=== PATIENT | male | born 1960 | race Caucasian/White ===

== ENCOUNTER 2017-12-05 14:47 | Inpatient (IN) | payer OTHER ==
[~2017-12-05] VITALS: Ht 172.7 cm; Wt 72.6 kg
[~2017-12-05 14:47] MED LIST: ACET-9536 PO; ALBU0.0912 IH; ATRMDI IH; BACL20TA4 PO; FURO-572 PO; LORA10TA19 PO; RANI-287 PO; SIMV20TA1 PO; SODI45SP3 NS
[2017-12-05 14:52] VITALS: BP 142/79
[2017-12-05] MEDS ORDERED: ACETAMINOPHEN EXTRA STRENGTH 500 MG TAB ONE ×2 (15:14→20:37)
[2017-12-05] MEDS ORDERED: NACL 0.9% 2,500 ML IV ONE (17:05)
[2017-12-05] MEDS ORDERED: ALBUTEROL SULFATE/IPRATROPIU 3 ML SOL IH ONE (17:40)
--- NOTE | 2017-12-05 17:51 | NUR ---
PATIENT IS A 57 YO MALE BIB EMS FROM [facility] FOR SHORTNESS OF BREATH, ON ARRIVAL HE IS AWAKE AND ALERT,ABLE TOTALKE HAS VERY LOUD PRODUCTIVE COUGH, GIVEN TYLENOL PO GIVEN ON ARRIVAL FOR FEVER, TO LOBBY FOR BED AVAILABILITY.
--- NOTE | 2017-12-05 17:53 | NUR ---
PATIENT BRFOUGHT TO [facility] FOR TESTING, LABS DRAWN IV ESTABLISHED AND IV FLUID STARTED. DR HOOKER EVALUATED PATIENTG. FLUID RUNNING RT AT CHAIRSIDE AND HHN STARTED.
[2017-12-05 18:10] LABS: HEMATOCRIT 42.9 % (36-52); HEMOGLOBIN 14.3 g/dL (12.0-18.0); MEAN CORPUSCULAR HEMOGLOBIN 31 pg (27-31); MEAN CORPUSCULAR HGB CONC 33 g/dL (33-37); MEAN CORPUSCULAR VOLUME 93 fL (80-94); PLATELET COUNT (AUTO) 269 K/uL (140-450); RED BLOOD CELL COUNT(AUTO) 4.62 MIL/uL (4.20-6.10)
--- NOTE | 2017-12-05 18:30 | NUR ---
57M biba with c/o productive cough and congestion with sob x 1 wk, progressively getting worse. Pt also reports fatigue and weakness. Pt denies any cp, sob, or n/v/d. Pt has hx of pna. Pt is aox4. RR are even, tachynpeic, and labored. pulse ox=97% on RA. Pt positioned to comfort, bed down. NAD at this time. Er md aware of pt status. Will continue to monitor.
--- NOTE | 2017-12-05 19:27 | NUR ---
Pt report given to Elizabeth CARDOSO. Transfer of care at this time.
--- NOTE | 2017-12-05 20:25 | NUR ---
100.8 TEMP, MEDICATION PROTOCOL INITIATED
--- NOTE | 2017-12-05 21:30 | NUR ---
PT AFEBRILE. Patient appears to be resting comfortably in bed. Vital Signs within normal limits. Respirations even and unlabored. AWAITING FOR LABS
[2017-12-05 21:58] LABS: EOSINOPHILS % (MANUAL) 2 % (0-4); LYMPHOCYTES % (MANUAL) 8 % (20-46); MONOCYTES % (MANUAL) 10 % (5-12)
[2017-12-05 22:17] LABS: ALBUMIN 3.1 g/dL (3.4-5.0); ANION GAP 15.8 (8-16); CARBON DIOXIDE 21.9 mmol/L (21-32); POTASSIUM 3.7 mmol/L (3.5-5.1); TOTAL BILIRUBIN 1.1 mg/dL (0.0-1.0)
--- NOTE | 2017-12-05 22:30 | NUR ---
PT AFEBRILE. Patient appears to be resting comfortably in bed. Vital Signs within normal limits. Respirations even and unlabored.
[2017-12-05] MEDS ORDERED: LEVOFLOXACIN 750 MG/D5W PREMIX 150 ML IV SCH ×2 (22:40→22:50)
[2017-12-05] MEDS ORDERED: NACL 0.9% 1,000 ML IV SCH (22:50)
[2017-12-05] MEDS ORDERED: ACETAMINOPHEN 325 MG TAB PO PRN (22:50)
[2017-12-05] MEDS ORDERED: ONDANSETRON 4 MG/2 ML VIAL IVP PRN (22:50)
[2017-12-05] MEDS ORDERED: ALBUTEROL 0.083% 2.5 MG/3 ML NEBU IH PRN (22:50)
[2017-12-06] VITALS: BP 124/64
--- NOTE | 2017-12-06 | NUR ---
Admitted from ER TO MED SURGICAL UNIT, with chief complaint of SHORTNESS OF BREATH, COUGHING FOR 3 DAYS 57 y/o ,Male, Cooperative, AWAKE, A/OX4, RESPIRATION EVEN AND UNLABORED, ON 02 AT 2 LITERS VIA N/C, 02 SAT -92%. WITH PERSISTENT UNPRODUCTIVE COUGHING NOTED. HEAD OF BED ELEVATED 45 DEGREES BUT PREFERS HEAD OF BED IN LOWER POSITION. HEAD TO TOE ASSESSMENT DONE WITH CHARGE NURSE MARTINA, SKIN INTACT. NOTED VERY DRY SKIN AT THE PLANTAR AREA OF BOTH FEET. DENIES PAIN 0/10. oriented to call light, bed, phone,television, bathroom, smoking policy, visiting hours, procedures, ID bracelet on. Belongings list checked.
--- NOTE | 2017-12-06 | NUR ---
Patient will be admitted to [facility]. Admited to MS. Will go to room 106B. Belongings list completed. BEDSIDE Report to TEDDY LYLE. IV INFUSING, TEDDY INFORMED TO FINISH BAG
--- NOTE | 2017-12-06 00:05 | NUR ---
Patient's Plan of Care was discussed and reviewed with MERCHANDISE ADJUSTMENT CLERK: TEDDY GONCALVES
[2017-12-06] MEDS: ALBUTEROL 0.083% 2.5 MG/3 ML NEBU IH SCH ×3 (00:20→20:14)
[2017-12-06] MEDS: guaiFENesin DM 200/20 MG-10 ML 10 ML UDC PO PRN ×4 (01:45→22:04)
--- NOTE | 2017-12-06 01:45 | NUR ---
STILL WITH PERSISTENT UNPRODUCTIVE COUGHING, MEDICATED WITH ROBITUSSIN ORDERED.
--- NOTE | 2017-12-06 02:45 | NUR ---
NO COUGHING NOTED, SLEEPING COMFORTABLY IN BED.
[2017-12-06 04:00] VITALS: BP 123/70
--- NOTE | 2017-12-06 05:21 | NUR ---
AWAKE IN BED, WITH COUGHING, MEDICATED WITH ROBITUSSIN ORDERED.
--- NOTE | 2017-12-06 06:21 | NUR ---
RESTING COMFORTABLY SLEEPING IN BED, DECREASED COUGHING NOTED.
--- NOTE | 2017-12-06 07:25 | NUR ---
ENDORSED TO JANAE ARROYO FOR CONTINUITY OF CARE.
--- NOTE | 2017-12-06 07:30 | NUR ---
RECEIVED ON BED AAOX4. NO SOB NOTED. NO C/O PAIN AT THIS TIME. IV TO RT AC PATENT AND INTACT. CHEST DIMINISHED AIR ENTRY TO THE BASES, SLIGHT WHEEZING NOTED ON UPPER LOBES. PT ON OXYGEN AT 2LPM VIA NASAL CANNULA WITH 95% O2 SATS. ABDOMEN SOFT, BOWEL SOUNDS PRESENT. INSTRUCTED PT TO CALL FOR ASSISTANCE, CALL LIGHT WITHIN REACH. PT VERBALIZED UNDERSTANDING.
[2017-12-06 08:00] VITALS: BP 118/64
--- NOTE | 2017-12-06 08:57 | NUR ---
PATIENT HAS BEEN SCREENED AND CATEGORIZED LOW NUTRITION RISK. PT WILL BE SEEN WITHIN 7 DAYS OF ADMISSION. 12/11/[address]
[2017-12-06] MEDS ORDERED: OSELTAMIVIR PHOSPHATE 75 MG CAP PO SCH (09:00)
[2017-12-06] MEDS: ENOXAPARIN 40 MG/0.4 ML SYR SUBQ SCH (09:28)
[2017-12-06 10:41] LABS: BASOPHILS # (AUTO) 0.1 K/uL (0.00-0.22); EOSINOPHILS # (AUTO) 0.1 K/uL (0-0.4); EOSINOPHILS % (AUTO) 1.1 % (0.0-4.0); HEMATOCRIT 36.6 % (36-52); HEMOGLOBIN 12.4 g/dL (12.0-18.0); LYMPHOCYTES # (AUTO) 0.8 K/uL (2.0-11.5); LYMPHOCYTES % (AUTO) 6.4 % (20.5-51.1); MEAN CORPUSCULAR HEMOGLOBIN 32 pg (27-31); MEAN CORPUSCULAR HGB CONC 34 g/dL (33-37); MEAN CORPUSCULAR VOLUME 93 fL (80-94); MONOCYTES # (AUTO) 1.8 K/uL (0.8-1.0); NEUTROPHILS # (AUTO) 9.3 K/uL (1.8-7.7); NEUTROPHILS % (AUTO) 76.5 % (42.2-75.2); PLATELET COUNT (AUTO) 222 K/uL (140-450); RED BLOOD CELL COUNT(AUTO) 3.92 MIL/uL (4.20-6.10); RED CELL DISTRIBUTION WIDTH 12.9 % (11.6-13.7)
[2017-12-06 12:09] LABS: WHITE BLOOD COUNT (AUTO) 12.1 K/uL (4.8-10.8)
[2017-12-06] MEDS ORDERED: NON-FORMULARY ITEM (Ranitidine Hcl* (Zantac*) 150 MG) PO PRN (12:35)
--- NOTE | 2017-12-06 13:00 | NUR ---
PT SEEN BY DR. HERNANDEZ WITH NEW ORDERS.
--- NOTE | 2017-12-06 13:09 | NUR ---
CM NOTE INITIAL REVIEW FAXED TO [facility] [phone] T[place]LOR # [phone]
[2017-12-06] MEDS ORDERED: LEVOFLOXACIN 750 MG/D5W PREMIX 150 ML IV SCH (13:35)
[2017-12-06] MEDS: FAMOTIDINE 20 MG/2 ML VIAL IV SCH (13:40)
[2017-12-06 14:02] LABS: ANION GAP 16.5 (8-16); CARBON DIOXIDE 19.3 mmol/L (21-32); CREATININE 0.9 mg/dL (0.7-1.3); POTASSIUM 3.8 mmol/L (3.5-5.1)
[2017-12-06 14:08] LABS: ALBUMIN 2.4 g/dL (3.4-5.0); TOTAL BILIRUBIN 0.9 mg/dL (0.0-1.0)
--- NOTE | 2017-12-06 15:30 | NUR ---
URINE SPECIMEN COLLECTED AND SENT TO LAB.
[2017-12-06 15:57] VITALS: BP 115/60
[2017-12-06 16:52] LABS: APPEARANCE,URINE CLEAR (CLEAR); BILIRUBIN,URINE 1+ (NEGATIVE); BLOOD, URINE NEGATIVE (NEGATIVE); COLOR,URINE ORANGE (YELLOW); LEUKOCYTE ESTERASE ,URINE NEGATIVE (NEGATIVE); NITRITE, URINE NEGATIVE (NEGATIVE); UGLUCOSE NEGATIVE (NEGATIVE)
--- NOTE | 2017-12-06 18:00 | NUR ---
PT EATING DINNER. NO SOB NOTED. NO C/O PAIN.
--- NOTE | 2017-12-06 19:15 | NUR ---
PT AWAKE, NO COMPLAINTS MADE, NO SOB NOTED. WILL ENDORSE TO NEXT SHIFT NURSE FOR CONTINUITY OF CARE.
--- NOTE | 2017-12-06 19:17 | NUR ---
RECEIVED REPORT FROM DAY RN. PT RESTING IN BED. AAOX4. NO S/S OF ACUTE DISTRESS. PT DENIES PAIN. ON O2 2L NC. IV SITE PATENT AND INTACT. CALL LIGHT WITHIN REACH. SAFETY MEASURES ENSURED. WILL CONTINUE TO MONITOR.
[2017-12-06] MEDS: IPRATROPIUM 0.02% 0.5 MG/2.5 ML NEBU IH SCH (20:14)
[2017-12-06] MEDS: LEVOFLOXACIN 750 MG/D5W PREMIX 150 ML IV SCH (20:30)
[2017-12-06] MEDS: methylPREDNISolone SS 40 MG/ML VIAL IVP SCH (20:31)
--- NOTE | 2017-12-06 20:37 | NUR ---
AM MEDS GIVEN WITH EDUCATION. PT TOLERATED WELL. WILL CONTINUE TO MONITOR.
--- NOTE | 2017-12-06 22:24 | NUR ---
PT COUGHING PERSISTENTLY. COUGH MEDICINE GIVEN ORDERED. OLD IV SITE RED. IV DISCONTINUED. NEW IV STARTED. WILL CONTINUE TO MONITOR.
[2017-12-06 23:55] VITALS: BP 123/73
--- NOTE | 2017-12-07 00:02 | NUR ---
PT SLEEPING IN BED. NO S/S OF ACUTE DISTRESS. CALL LIGHT WITHIN REACH. WILL CONTINUE TO MONITOR.
[2017-12-07] MEDS: IPRATROPIUM 0.02% 0.5 MG/2.5 ML NEBU IH SCH ×4 (01:25→19:25)
[2017-12-07] MEDS: ALBUTEROL 0.083% 2.5 MG/3 ML NEBU IH SCH ×4 (01:25→19:25)
--- NOTE | 2017-12-07 01:44 | NUR ---
PT SLEEPING IN BED. NO S/S OF ACUTE DISTRESS. CALL LIGHT WITHIN REACH. WILL CONTINUE TO MONITOR.
--- NOTE | 2017-12-07 05:02 | NUR ---
PT SLEEPING IN BED. NO S/S OF ACUTE DISTRESS. CALL LIGHT WITHIN REACH. WILL CONTINUE TO MONITOR.
--- NOTE | 2017-12-07 07:34 | NUR ---
ENDORSED PLAN OF CARE TO NIGHT RN. PT REMAINS STABLE.
--- NOTE | 2017-12-07 07:35 | NUR ---
RECEIVED REPORT FROM EMD TEACHER NURSE. PATIENT LYING IN BED SLEEPING, NO DISTRESS NOTED. DENIES ANY PAIN AT THIS TIME. RESPIRATIONS EVEN, UNLABORED, ON O2 2L/MIN VIA NC. AAOX4, CALM, COOPERATIVE, SKIN COLOR APPROPRIATE TO ETHNICITY, WARM TO TOUCH. SKIN IS INTACT. LUNGS CTA ON ALL LOBES. ABDOMEN SOFT, NON-DISTENDED. IV SITE IS INTACT, PATENT, ON SALINE LOCK. REVIEWED PLAN OF CARE WITH PATIENT. PATIENT VERBALIZED UNDERSTANDING. SAFETY MEASURES IN PLACE, CALL LIGHT WITHIN REACH. WILL CONTINUE TO MONITOR.
[2017-12-07 07:46] LABS: BASOPHILS # (AUTO) 0.1 K/uL (0.00-0.22); BASOPHILS % (AUTO) 0.9 % (0.0-2.0); EOSINOPHILS # (AUTO) 0.1 K/uL (0-0.4); EOSINOPHILS % (AUTO) 0.7 % (0.0-4.0); HEMATOCRIT 37.7 % (36-52); HEMOGLOBIN 12.7 g/dL (12.0-18.0); LYMPHOCYTES # (AUTO) 0.5 K/uL (2.0-11.5); LYMPHOCYTES % (AUTO) 5.3 % (20.5-51.1); MEAN CORPUSCULAR HEMOGLOBIN 31 pg (27-31); MEAN CORPUSCULAR HGB CONC 34 g/dL (33-37); MEAN CORPUSCULAR VOLUME 93 fL (80-94); MONOCYTES # (AUTO) 0.6 K/uL (0.8-1.0); MONOCYTES % (AUTO) 6.8 % (1.7-9.3); NEUTROPHILS # (AUTO) 7.3 K/uL (1.8-7.7); NEUTROPHILS % (AUTO) 86.3 % (42.2-75.2); PLATELET COUNT (AUTO) 251 K/uL (140-450); RED BLOOD CELL COUNT(AUTO) 4.05 MIL/uL (4.20-6.10); WHITE BLOOD COUNT (AUTO) 8.6 K/uL (4.8-10.8)
[2017-12-07 08:00] VITALS: BP 102/59
[2017-12-07 08:08] LABS: ALBUMIN 2.3 g/dL (3.4-5.0); ANION GAP 14.4 (8-16); CARBON DIOXIDE 22.3 mmol/L (21-32); CREATININE 0.9 mg/dL (0.7-1.3); POTASSIUM 3.7 mmol/L (3.5-5.1); TOTAL BILIRUBIN 0.5 mg/dL (0.0-1.0)
[2017-12-07] MEDS: SIMVASTATIN 20 MG TAB PO SCH (09:33)
[2017-12-07] MEDS: LORATADINE 10 MG TAB PO SCH (09:34)
[2017-12-07] MEDS: FUROSEMIDE 40 MG/4 ML VIAL IVP SCH (09:34)
[2017-12-07] MEDS: methylPREDNISolone SS 40 MG/ML VIAL IVP SCH ×2 (09:35→20:51)
[2017-12-07] MEDS: ENOXAPARIN 40 MG/0.4 ML SYR SUBQ SCH (09:37)
--- NOTE | 2017-12-07 09:38 | NUR ---
PATIENT SITTING IN BED COMFORTABLY. NO DISTRESS NOTED. DENIES ANY PAIN. SCHEDULED MEDICATIONS DUE GIVEN. SAFETY MEASURES IN PLACE, CALL LIGHT WITHIN REACH. WILL CONTINUE TO MONITOR.
--- NOTE | 2017-12-07 11:28 | NUR ---
PATIENT SITTING IN BED WATCHING TV. NO DISTRESS NOTED. CONDITION UNCHANGED. WILL CONTINUE TO MONITOR.
[2017-12-07] MEDS: FAMOTIDINE 20 MG/2 ML VIAL IV SCH (13:14)
--- NOTE | 2017-12-07 13:30 | NUR ---
PATIENT SITTING IN BED WATCHING TV. NO DISTRESS NOTED. DENIES ANY PAIN. RECEIVED BREATHING TX 15 MINUTES AGO. SCHEDULED MEDICATIONS DUE GIVEN. SAFETY MEASURES IN PLACE, CALL LIGHT WITHIN REACH. WILL CONTINUE TO MONITOR.
[2017-12-07 16:00] VITALS: BP 107/70
--- NOTE | 2017-12-07 16:27 | NUR ---
PATIENT SITTING IN BED WATCHING TV. DR. HERNANDEZ AT BEDSIDE REVIEWING PLAN OF CARE WITH PATIENT. DISCHARGE PATIENT IF O2 SAT >90% ON ROOM AIR. WILL WEAN PATIENT OFF O2 AND MONITOR PATIENTS STATUS. SAFETY MEASURES IN PLACE, CALL LIGHT WITHIN REACH. WILL CONTINUE TO MONITOR.
--- NOTE | 2017-12-07 17:30 | NUR ---
PATIENT SITTING IN BED ON ROOM AIR WITH O2 SAT 87-89%. O2 SATS DECREASE TO 84-85 WHEN PATIENT AMBULATES TO BATHROOM. SAFETY MEASURES IN PLACE. WILL CONTINUE TO MONITOR.
--- NOTE | 2017-12-07 18:30 | NUR ---
PATIENT SITTING IN BED WATCHING TV. O2 SAT IS AT 88% ON ROOM AIR AND ON BEDREST. DENIES ANY DYSPNEA WHEN STAYING STILL. DENIES ANY PAIN. UNABLE TO DISCHARGE PATIENT DUE TO O2 SAT <90% ON ROOM AIR. WILL CONTINUE TO MONITOR.
--- NOTE | 2017-12-07 19:20 | NUR ---
GAVE REPORT TO BATTER DEPOSITOR NURSE FOR CONTINUITY OF CARE. PATIENT IN STABLE CONDITION.
--- NOTE | 2017-12-07 19:21 | NUR ---
RECEIVED HANDOFF REPORT FROM AM RN. PATIENT A&OX4. PATIENT DENIES PAIN. IV SITE PATENT AND INTACT. O2 IS 90% ON ROOM AIR. NO SIGNS OR SYMPTOMS OF ACUTE DISTRESS NOTED. CALL LIGHT WITHIN REACH. WILL CONTINUE TO MONITOR.
--- NOTE | 2017-12-07 19:58 | NUR ---
RT IN TO SEE PATIENT. PATIENT STATES NOT WANTING TO GO HOME. PATIENT STATES HE NEEDS NOTICE TO ARRANGE FOR SOMEONE TO PICK HIM UP. PATIENT IS AWARE OF DISCHARGE ORDER AND PARAMETERS OF DISCHARGE. NO SIGNS OR SYMPTOMS OF ACUTE DISTRESS NOTED. CALL LIGHT WITHIN REACH. WILL CONTINUE TO MONITOR.
[2017-12-07] MEDS: LEVOFLOXACIN 750 MG/D5W PREMIX 150 ML IV SCH (20:43)
[2017-12-08] VITALS: BP 116/64
--- NOTE | 2017-12-08 01:16 | NUR ---
PATIENT RESTING IN BED. PATIENT DENIES PAIN. NO SIGNS OR SYMPTOMS OF ACUTE DISTRESS NOTED. PATIENT ON ROOM AIR. O2 SAT 93%. SAFETY MEASURES ENSURED. WILL CONTINUE TO MONITOR.
[2017-12-08] MEDS: IPRATROPIUM 0.02% 0.5 MG/2.5 ML NEBU IH SCH ×3 (02:12→13:07)
[2017-12-08] MEDS: ALBUTEROL 0.083% 2.5 MG/3 ML NEBU IH SCH ×3 (02:12→13:07)
--- NOTE | 2017-12-08 03:51 | NUR ---
PATIENT RESTING IN BED. PATIENT O2 IS 93% ON ROOM AIR. PATIENT DENIES PAIN. NO SIGNS OR SYMPTOMS OF ACUTE DISTRESS NOTED. CALL LIGHT WITHIN REACH. WILL CONTINUE TO MONITOR.
--- NOTE | 2017-12-08 07:17 | NUR ---
ENDORSED PLAN OF CARE TO AM RN. PATIENT IN STABLE CONDITION.
--- NOTE | 2017-12-08 07:18 | NUR ---
RECEIVED REPORT FROM FOOD PROCESSING PLANT MANAGER NURSE. PATIENT LYING IN BED SLEEPING, NO DISTRESS NOTED. DENIES ANY PAIN AT THIS TIME. RESPIRATIONS EVEN, UNLABORED, ON ROOM AIR WITH O2 SAT AT 94%. AAOX4, CALM, COOPERATIVE, SKIN COLOR APPROPRIATE TO ETHNICITY, WARM TO TOUCH. SKIN IS INTACT. LUNGS CTA ON ALL LOBES. ABDOMEN SOFT, NON-DISTENDED. IV SITE IS INTACT, PATENT, ON SALINE LOCK. REVIEWED PLAN OF CARE WITH PATIENT. PATIENT VERBALIZED UNDERSTANDING. SAFETY MEASURES IN PLACE, CALL LIGHT WITHIN REACH. WILL CONTINUE TO MONITOR.
[2017-12-08 08:00] VITALS: BP 119/68
[2017-12-08] MEDS: ENOXAPARIN 40 MG/0.4 ML SYR SUBQ SCH (09:17)
[2017-12-08] MEDS: SIMVASTATIN 20 MG TAB PO SCH (09:19)
[2017-12-08] MEDS: LORATADINE 10 MG TAB PO SCH (09:19)
[2017-12-08] MEDS: FUROSEMIDE 40 MG/4 ML VIAL IVP SCH (09:19)
[2017-12-08] MEDS: methylPREDNISolone SS 40 MG/ML VIAL IVP SCH (09:20)
--- NOTE | 2017-12-08 09:29 | NUR ---
PATIENT SITTING IN BED WATCHING TV. NO DISTRESS NOTED. DENIES ANY PAIN. O2 SAT AT 94% ON ROOM AIR. SCHEDULED MEDICATIONS DUE GIVEN. SAFETY MEASURES IN PLACE, CALL LIGHT WITHIN REACH. WILL CONTINUE TO MONITOR.
--- NOTE | 2017-12-08 11:21 | NUR ---
PATIENT SITTING IN BED WATCHING TV. NO DISTRESS NOTED. DENIES ANY PAIN. O2 SAT AT 92% ON ROOM AIR. SAFETY MEASURES IN PLACE, CALL LIGHT WITHIN REACH. WILL CONTINUE TO MONITOR.
[2017-12-08] MEDS: guaiFENesin DM 200/20 MG-10 ML 10 ML UDC PO PRN (11:47)
--- NOTE | 2017-12-08 11:48 | NUR ---
PATIENT COMPLAINTS OF COUGH. MEDICATED WITH ROBITUSSIN PER ORDERS. PATIENT REPORTS FEELING LIGHTHEADEDNESS THAT LASTS ABOUT 3 SECONDS. SAFETY MEASURES IN PLACE, CALL LIGHT WITHIN REACH. WILL CONTINUE TO MONITOR.
[2017-12-08] MEDS: FAMOTIDINE 20 MG/2 ML VIAL IV SCH (12:23)
--- NOTE | 2017-12-08 12:32 | NUR ---
PATIENT SITTING IN BED WATCHING TV. NO DISTRESS NOTED. O2 SAT 94% ON ROOM AIR. SCHEDULED MEDICATIONS DUE GIVEN. SAFETY MEASURES IN PLACE, CALL LIGHT WITHIN REACH. WILL CONTINUE TO MONITOR.
--- NOTE | 2017-12-08 14:58 | NUR ---
PATIENT SITTING IN BED WATCHING TV. NO DISTRESS NOTED. O2 SAT AT 94% ON ROOM AIR. DENIES ANY PAIN AT THIS TIME. SAFETY MEASURES IN PLACE, CALL LIGHT WITHIN REACH. WILL CONTINUE TO MONITOR.
[2017-12-08 16:00] VITALS: BP 128/67
--- NOTE | 2017-12-08 16:33 | NUR ---
PATIENT BEING DISCHARGED TO PATIENT'S FRIENDS HOUSE TODAY DUE TO O2 SAT >90% ON ROOM AIR PER DR. HERNANDEZ ORDERS. PATIENT NOTIFIED AND MADE AWARE. RESOURCE PACKET GIVEN TO PATIENT AND EXPLAINED PHONE NUMBERS AND ADDRESSES OF HOMELESS SHELTERS THAT PATIENT CAN GO TO IF NEEDED. DISCHARGE INSTRUCTIONS/EDUCATIONS, FOLLOW-UP VISITS, NEW/CHANGED MEDICATIONS, AND DISEASE PROCESS OF PNEUMONIA PROVIDED TO PATIENT IN PREFERRED LANGUAGE OF IRISH. ANSWERED ALL OF PATIENT'S QUESTIONS REGARDING DISCHARGE. PATIENT VERBALIZED UNDERSTANDING. ALL BELONGINGS WITH PATIENT. AWAITING FOR PATIENT'S FRIEND TO ARRIVE AROUND 1700 TO TAKE PATIENT HOME TEMPORARY. WILL CONTINUE TO MONITOR. Addendum: 12/08/17 at 1649 by Can Linn RN HOMELESS RESOURCE PACKET SIGNED BY PATIENT. PATIENT VERBALIZED UNDERSTANDING OF THE RESOURCE.
--- NOTE | 2017-12-08 17:30 | NUR ---
PATIENT'S FRIEND AT [facility] WITH PRIVATE VEHICLE TO TAKE PATIENT TO HER HOME TEMPORARY. IV SITE REMOVED WITH MINIMAL BLOOD AND LUMEN COMPLETELY INTACT. ESCORTED PATIENT DOWN TO [facility] VIA WHEELCHAIR AND PATIENT ABLE TO AMBULATE FROM WHEELCHAIR TO PRIVATE VEHICLE. ALL BELONGINGS WITH PATIENT. PATIENT DISCHARGED AT THIS TIME TO FRIENDS HOME VIA PRIVATE VEHICLE IN STABLE CONDITION.
== END 2017-12-08 17:30 | disposition home or self-care (01) | DRG 140 ==
LOC: MED 14:47 → MTU 22:46 → MMU 22:46 → UNDOADMIN 22:46 → MTU 23:11 → MMU 23:11 → MTU 23:57
PROVIDERS: ADMIT Hospitalist; ATTEND Hospitalist
DX: J44.1 Chronic obstructive pulmonary disease with (acute) exacerbation (principal); J96.20 Acute and chronic respiratory failure, unspecified whether with hypoxia or hypercapnia; I50.9 Heart failure, unspecified; I11.0 Hypertensive heart disease with heart failure; F17.210 Nicotine dependence, cigarettes, uncomplicated; Z59.0 Homelessness; Z88.6 Allergy status to analgesic agent; Z88.0 Allergy status to penicillin; Z86.73 Personal history of transient ischemic attack (TIA), and cerebral infarction without residual deficits; Z86.11 Personal history of tuberculosis; Z86.718 Personal history of other venous thrombosis and embolism
CPT/HCPCS: 36415; 71046; 80053; 81003; 82948; 83605; 83880; 84484; 85025; 87040; 87081; 87804; 93005; 93970; 94640; 96361; 96365; 99285; J1650; J1940; J1956; J2920; J3490; J7613; J7620; J7644; Q0092

== ENCOUNTER 2019-11-14 13:13 | Inpatient (IN) | payer OTHER ==
[~2019-11-14] VITALS: Ht 172.7 cm; Wt 82.6 kg
[~2019-11-14 13:13] MED LIST changes: -SODI45SP3 NS
[2019-11-14 13:28] VITALS: BP 132/75
--- NOTE | 2019-11-14 13:32 | NUR ---
59/M C/O PRODUCTIVE COUGH X 1 WK. SPUTUM WAS YELLOW, GARGLED WITH SALT WATER AND SPUTUM TURNED CLEAR. DENIES HEMOPTYSIS. STATES NIGHT SWEATS WELL DIAPHORESIS DURING THE DAY. UNSURE IF HAVING WEIGHT LOSS. STATES FEELS EXACTLY LIKE TB WHEN HE HAD IT 2 YEARS AGO. TB WAS TREATED HERE AT [facility]. STATES SOB. 10/10 STABBING PAIN TO BILATERAL LOWER CHEST ABOVE DIAPHRAGM WHEN MOVING (SUCH TAKING OFF SHIRT) X FEW MONTHS. PT IS CURRENT SMOKER. NOTED WITH SEVERE COUGH. NO SPUTUM SEEN AT THIS TIME. +SUPRACLAVICULAR RETRACTIONS. 99% RA. VSS; BEDRAILS UP X1; IN ISOLATION ROOM WITH ISO SIGN POSTED; ERMD MADE AWARE OF PT C/O AND TO EVALUATE PT.
--- NOTE | 2019-11-14 13:35 | NUR ---
PER 2 VIEW CXR ON 12/05/17 AT [facility], NEGATIVE RESULT.
--- NOTE | 2019-11-14 14:00 | NUR ---
BLOOD DRAWN AND GIVEN TO MERCHANT BANKER.
[2019-11-14 14:22] LABS: BASOPHILS # (AUTO) 0.1 K/uL (0.00-0.22); BASOPHILS % (AUTO) 0.6 % (0.0-2.0); EOSINOPHILS # (AUTO) 0.2 K/uL (0-0.4); HEMATOCRIT 39.9 % (36-52); HEMOGLOBIN 13.2 g/dL (12.0-18.0); LYMPHOCYTES # (AUTO) 1.2 K/uL (2.0-11.5); LYMPHOCYTES % (AUTO) 14.6 % (20.5-51.1); MEAN CORPUSCULAR HEMOGLOBIN 31 pg (27-31); MEAN CORPUSCULAR HGB CONC 33 g/dL (33-37); MEAN CORPUSCULAR VOLUME 93.7 fL (80-94); MONOCYTES # (AUTO) 0.9 K/uL (0.8-1.0); MONOCYTES % (AUTO) 10.6 % (1.7-9.3); NEUTROPHILS # (AUTO) 5.9 K/uL (1.8-7.7); NEUTROPHILS % (AUTO) 72.2 % (42.2-75.2); PLATELET COUNT (AUTO) 257 K/uL (140-450); RED BLOOD CELL COUNT(AUTO) 4.25 MIL/uL (4.20-6.10); RED CELL DISTRIBUTION WIDTH 13.7 % (11.6-13.7); WHITE BLOOD COUNT (AUTO) 8.2 K/uL (4.8-10.8)
--- NOTE | 2019-11-14 14:28 | NUR ---
CXR AT BEDSIDE.
--- NOTE | 2019-11-14 14:29 | NUR ---
URINE SAMPLE GIVEN TO FREIGHT BRAKE OPERATOR.
[2019-11-14 14:30] LABS: ANION GAP 13.7 (8-16); CARBON DIOXIDE 25.8 mmol/L (21-32); CREATININE 0.8 mg/dL (0.7-1.3); POTASSIUM 3.5 mmol/L (3.5-5.1)
--- NOTE | 2019-11-14 14:31 | NUR ---
PER WASHER ENGINEER MARTINA, UNABLE TO LOCATED TB GOLD TUBES AT THIS TIME, WILL DELAY TB GOLD BLOOD DRAW UNTIL 1600 TODAY. Addendum: 11/14/19 at 1513 by JAZLYN PUMP OPERATOR BYPRODUCTS AND DR. GARRIDO MADE AWARE.
[2019-11-14 14:43] LABS: ALBUMIN 2.5 g/dL (3.4-5.0); TOTAL BILIRUBIN 0.4 mg/dL (0.0-1.0)
[2019-11-14] MEDS ORDERED: NACL 0.9% 1,000 ML IV ONE (14:45)
--- NOTE | 2019-11-14 15:01 | NUR ---
NACL BOLUS STARTED
[2019-11-14 15:03] LABS: APPEARANCE,URINE CLEAR (CLEAR); BILIRUBIN,URINE NEGATIVE (NEGATIVE); BLOOD, URINE TRACE-L (NEGATIVE); COLOR,URINE YELLOW (YELLOW); LEUKOCYTE ESTERASE ,URINE NEGATIVE (NEGATIVE); NITRITE, URINE NEGATIVE (NEGATIVE); PH,URINE 6.5 (5.0-9.0); UGLUCOSE NEGATIVE (NEGATIVE)
[2019-11-14] MEDS ORDERED: LEVOFLOXACIN 500 MG/D5W PREMIX 100 ML IV ONE (15:20)
[2019-11-14 15:23] LABS: WBC,URINE NONE SEEN /HPF (0-5)
[2019-11-14] MEDS ORDERED: BACL10TA4 PO (15:54)
[2019-11-14] MEDS ORDERED: HYDR-5092 PO (15:56)
[2019-11-14] MEDS ORDERED: SODI45SP10 NS (15:58)
--- NOTE | 2019-11-14 16:45 | NUR ---
Patient will be admitted to care of DR. HANEY. Admited to TELE. Will go to room 117. Belongings list completed. Report to ACE CARDOSO.
[2019-11-14 16:50] VITALS: BP 137/71
--- NOTE | 2019-11-14 16:50 | NUR ---
RECEIVED REPORT FROM EMERGENCY ROOM NURSE PAVAN FOR CONTINUITY OF CARE. PT IN STABLE CONDITION. RESPIRATIONS EVEN AND UNLABORED. IV INTACT AND PATENT. BED IN LOW POSITION. CALL LIGHT AT BEDSIDE. SAFETY MEASURES IN PLACE. WILL CONTINUE TO MONITOR.
[2019-11-14] MEDS ORDERED: ONDANSETRON 4 MG/2 ML VIAL IVP PRN (16:55)
--- NOTE | 2019-11-14 18:01 | NUR ---
PT LYING IN BED WATCHING TV IN STABLE CONDITION. WILL CONTINUE TO MONITOR.
--- NOTE | 2019-11-14 19:15 | NUR ---
RECEIVED REPORT FORM ACE CARDOSO DAYSHIFT NURSE AT BEDSIDE FOR CONTINUITY OF CARE, PT IN STABLE CONDITION.
--- NOTE | 2019-11-14 19:15 | NUR ---
GAVE REPORT TO MANIFEST CLERK NURSE FOR CONTINUITY OF CARE. PT IN STABLE CONDITION.
[2019-11-14 20:00] VITALS: BP 125/69
--- NOTE | 2019-11-14 20:00 | NUR ---
PT SITTING UP IN BED COUGHING. HE DECLINED N/C AT THIS TIME, SAYING THAT IT MAKES HIM COUGH WORSE DUE TO THE DRY AIR. PT COUGH IS PRODUCTIVE MOSTLY THIN CLEAR FLUID. SPUTUM CULTURE RECEPTACLE AT BEDSIDE. PT ENCOURAGED TO PROVIDE A THICK SAMPLE OF MUCUS NOT A THIN SAMPLE WITH A LOT OF SALIVA IF POSSIBLE. PT ACKNOWLEDGED UNDERSTANDING. PT SOMEWHAT SOB DUE TO COUGHING, LUNGS SOUNDS DIMINISHED. SPOKE WITH RESPIRATORY DUE TO REFERRAL OF RT SERVICES. PROTESTANT RT TO EVALUATE AT BEDSIDE. PT V/S FOLLOWS : T 98.3 P 88 R 18 B/P 125/69 02 94% ON ROOM AIR.
[2019-11-14] MEDS ORDERED: guaiFENesin 20 MG/ML UDC PO PRN (20:35)
--- NOTE | 2019-11-14 21:00 | NUR ---
FLUID ORDER 1/2 NS HUNG AND IS RUNNING AT 75MLS. RT ROSSANA RECOMMENDED PRN DUO NEB TXT FOR PRN SOB, WELL 02 TO BE MAINTAINED BETWEEN 88%-92%. CYNTHIA LEY RENAL NURSE DR. Kamron PRASAD. OF WITH PRN NEB TREATMENT FOR SOB. HE ALSO ORDERED 02 BE MAINTAINED BETWEEN 88-92% FOR COPD.
[2019-11-14] MEDS: NACL 0.45% 1,000 ML IV SCH (21:53)
--- NOTE | 2019-11-14 22:30 | NUR ---
PT SITTING UP IN BED, HE DECLINES SUPPLEMENTAL 02 AT THIS TIME. PT WAS ABLE TO AMBULATE INDEPENDENTLY FROM BED TO BATHROOM. IV SITE 20G ON LAC INTACT AND RUNNING N/S AT 75MLS/HR. REVIEWED LAB TEST WITH PT PER REQUEST. ER DOCUMENTATION NOTED THAT PT WAS GIVEN EDUCATION REGARDING SMOKING HABIT, HOWEVER NO NICOTINE PATCH WAS ORDERED. SPOKE WITH PT WHO SAID HE WOULD LIKE TO HAVE A NICOTINE PATCH AND THAT HE HAD TRIED THEM BEFORE AND HE WAS PLANNING TO QUIT ON THE FIRST OF THE YEAR. PT ALSO SAID THAT HE HAS HX OF HYPOGLYCEMIA THAT RUNS IN THE FAMILY AND THAT HIS F/S IN ER WAS 69. PT REQUEST A SANDWICH AT 2300 OR 2400 HRS. WILL SPEAK TO MD FRAME COVERER REGARDING ORDERING NICOTINE PATCH AND FINGERSTICKS.
[2019-11-15] VITALS: BP 115/61
--- NOTE | 2019-11-15 | NUR ---
CYNTHIA LEY MANAGER TRADE MARKETING DR. PRASAD, HE RETURNED THE CALL AND ORDERED NICOTINE PATCH REQUESTED WELL FINGERSTICKS AT AND TO MAINTAIN A SAFE BLOOD SUGAR LEVEL. PT MADE AWARE OF NEW ORDERS. HE WAS SITTING UP IN BED NO COUGHING NOTED, HE CONTINUE TO DECLINE SUPPLEMENTAL 02 VITAL SIGNS FOLLOWS: T 98.6 P 82 R 18 B/P 115/61 02 93% ON ROOM AIR. ALL REQUESTED NEEDS ATTENDED AND CALL [place] IN REACH.
[2019-11-15] MEDS: ALBUTEROL SULFATE/IPRATROPIU 3 ML SOL IH PRN ×4 (03:50→20:10)
[2019-11-15 04:00] VITALS: BP 122/71
--- NOTE | 2019-11-15 04:00 | NUR ---
PT ASSISTED FROM BED TO BEDSIDE COMMODE TO HAVE A BM. PT HAD A VERY SMALL BOWEL MOVEMENT. BHATT CATHETER INTACT AND DRAINING YELLOW URINE NOTED WITH A FEW BLOOD CLOTS, NO OTHER BLEEDING NOTED. PT ASSISTED BACK TO BED, SHE WAS REPOSITIONED IN BED IV SITE ON LEFT F/A INTACT AND RUNNING HEPARIN ORDERED. N/C INTACT AND RUNNING 02 VIA N/C. PT RECEIVED ORDERED NEB TREATMENT AND REQUESTED SNACK AT BEDSIDE. PT DAUGHTER ROCHELLE CALLED. PERMISSION GIVEN FROM PT TO UPDATE FAMILY MEMBER. PT ALSO SPOKE WITH DAUGHTER HERSELF. NO S/S OF PAIN OR DISTRESS NOTED ALL FALLS PRECAUTIONS IN PLACE AND CALL [place] IN REACH. Addendum: 11/15/19 at 0755 by Annabelle Michael RN WRONG PATIENT/WRONG CHART PLEASE DISREGARD THIS NOTE.
--- NOTE | 2019-11-15 04:00 | NUR ---
PT WOKE UP AND STARTED COUGHING. HE REQUESTED PRN NEB TREATMENT. PT HAD PROVIDED SPUTUM SAMPLE , HOWEVER THERE WAS A LOT OF SALIVA IN SAMPLE WHICH WOULD NOT NE ACCEPTED AT THE LAB. PT ENCOURAGED TO PROVIDE SAMPLE AFTER NEB TREATMENT.PT ACKNOWLEDGED UNDERSTANDING.
--- NOTE | 2019-11-15 04:45 | NUR ---
PT IN BED RECEIVED NEB TREATMENT PRN V/S FOLLOWS: T 98.6 P 63 R 18 B/P 122/71 02 98% ON 2 LITERS VIA N/C.
--- NOTE | 2019-11-15 06:00 | NUR ---
FINGERSTICK WAS 84. LAB DRAWS AT BEDSIDE. PT HAS NO S/S OF PAIN OR DISTRESS NOTED.
[2019-11-15 06:19] LABS: BASOPHILS % (AUTO) 0.4 % (0.0-2.0); EOSINOPHILS # (AUTO) 0.1 K/uL (0-0.4); EOSINOPHILS % (AUTO) 1.5 % (0.0-4.0); HEMATOCRIT 37.7 % (36-52); HEMOGLOBIN 12.8 g/dL (12.0-18.0); LYMPHOCYTES % (AUTO) 12.3 % (20.5-51.1); MEAN CORPUSCULAR HEMOGLOBIN 32 pg (27-31); MEAN CORPUSCULAR HGB CONC 34 g/dL (33-37); MEAN CORPUSCULAR VOLUME 93.6 fL (80-94); MONOCYTES # (AUTO) 0.8 K/uL (0.8-1.0); MONOCYTES % (AUTO) 10.6 % (1.7-9.3); NEUTROPHILS # (AUTO) 5.9 K/uL (1.8-7.7); NEUTROPHILS % (AUTO) 75.2 % (42.2-75.2); PLATELET COUNT (AUTO) 254 K/uL (140-450); RED BLOOD CELL COUNT(AUTO) 4.03 MIL/uL (4.20-6.10); RED CELL DISTRIBUTION WIDTH 13.5 % (11.6-13.7); WHITE BLOOD COUNT (AUTO) 7.9 K/uL (4.8-10.8)
--- NOTE | 2019-11-15 06:33 | NUR ---
PATIENT HAS BEEN SCREENED AND CATEGORIZED MODERATE NUTRITION RISK. PATIENT WILL BE SEEN WITHIN 3-5 DAYS OF ADMISSION. 11/17/19-11/19/19 OTIS BAEZ MS, RDN
[2019-11-15 06:41] LABS: ANION GAP 12.4 (8-16); CARBON DIOXIDE 26.9 mmol/L (21-32); CREATININE 0.9 mg/dL (0.7-1.3); POTASSIUM 4.3 mmol/L (3.5-5.1)
[2019-11-15] MEDS: BLOOD GLUCOSE MONITORING 1 DEV DEV FS SCH ×4 (06:48→20:41)
--- NOTE | 2019-11-15 07:15 | NUR ---
POC ENDORSED TO ACE CARDOSO DAYSHIFT NURSE AT BEDSIDE FOR CONTINUITY OF CARE, PT IN STABLE CONDITION.
--- NOTE | 2019-11-15 07:16 | NUR ---
RECEIVED REPORT FROM RE RECORDING MIXER NURSE MARTINA FOR CONTINUITY OF CARE. PT IN STABLE CONDITION. RESPIRATIONS EVEN AND UNLABORED, 02 2L VIA NC. IV INTACT AND PATENT. BED IN LOW POSITION. CALL LIGHT AT BEDSIDE. SAFETY MEASURES IN PLACE. WILL CONTINUE TO MONITOR.
[2019-11-15 08:00] VITALS: BP 113/67
[2019-11-15] MEDS: ENOXAPARIN 40 MG/0.4 ML SYR SUBQ SCH (08:56)
--- NOTE | 2019-11-15 08:56 | NUR ---
GAVE ORDERED DUE MEDICATIONS AT THIS TIME. PT TOLERATED WELL. BED IN LOW POSITION. CALL LIGHT AT BEDSIDE. WILL CONTINUE TO MONITOR.
[2019-11-15] MEDS: NACL 0.45% 1,000 ML IV SCH ×2 (08:57→20:40)
[2019-11-15] MEDS: ACETAMINOPHEN 325 MG TAB PO PRN (08:57)
[2019-11-15] MEDS: NICOTINE TRANSD SYS 7 MG/24 HR PATCH TD SCH (09:00)
--- NOTE | 2019-11-15 11:16 | NUR ---
PT LYING IN BED WATCHING TV AT THIS TIME. RESPIRATIONS EVEN AND UNLABORED. BED IN LOW POSITION. CALL LIGHT AT BEDSIDE. WILL CONTINUE TO MONITOR.
[2019-11-15 12:00] VITALS: BP 116/70
--- NOTE | 2019-11-15 12:00 | NUR ---
SATURATION 97% ON SUPPLEMENTAL OXYGEN AT 2 LPM VIA NC POST HHN THERAPY TITRATED FIO2 TO 1 LPM ACE/JANAE NOTIFIED
--- NOTE | 2019-11-15 13:22 | NUR ---
PT LYING IN BED SLEEP AT THIS TIME. RESPIRATIONS EVEN AND UNLABORED. BED IN LOW POSITION. CALL LIGHT AT BEDSIDE. WILL CONTINUE TO MONITOR.
--- NOTE | 2019-11-15 15:55 | NUR ---
SPUTUM CULTURE TO LAB AT THIS TIME.
[2019-11-15 16:00] VITALS: BP 122/66
[2019-11-15] MEDS ORDERED: LEVOFLOXACIN 500 MG/D5W PREMIX 100 ML IV SCH (16:00)
--- NOTE | 2019-11-15 16:55 | NUR ---
PT RECEIVING BREATHING TREATMENT AT THIS TIME. PT IN STABLE CONDITION. BED IN LOW POSITION. CALL LIGHT AT BEDSIDE. WILL CONTINUE TO MONITOR.
--- NOTE | 2019-11-15 18:02 | NUR ---
FNS TO PUT SANDWICH IN FRIDGE FOR MIDNIGHT SNACK PER PT REQUEST.
--- NOTE | 2019-11-15 19:06 | NUR ---
GAVE REPORT TO KNOWLEDGE ARCHITECT NURSE KISSAMANDA FOR CONTINUITY OF CARE. PT IN STABLE CONDITION.
--- NOTE | 2019-11-15 19:20 | NUR ---
RECEIVED BEDSIDE REPORT FROM DAY SHIFT NURSE. PATIENT IS ASLEEP AROUSABLE BY NAME AND TOUCH. RESPIRATION EVEN UNLABORED ON ROOM AIR. NO DISTRESS NOTED. SKIN IS WARM AND DRY. IV PATENT AND INTACT. PLAN OF CARE WAS DISCUSSED. BED IS AT LOW POSITION. CALL LIGHT WITHIN REACH. WILL CONTINUE TO MONITOR.
[2019-11-15 20:00] VITALS: BP 118/67
--- NOTE | 2019-11-15 20:04 | NUR ---
INITIAL ASSESSMENT DONE. VITALS WERE TAKEN. PATIENT ACCIDENTALLY PULLED HIS IV. NO ACTIVE BLEEDING SEEN. CANNULA TIP INTACT. INSERTED A NEW ONE TO THE LEFT FOREARM 22G. PATIENT IN STABLE CONDITION. WILL CONTINUE TO MONITOR.
--- NOTE | 2019-11-15 20:20 | NUR ---
RT AT BEDSIDE PATIENT RECEIVING BREATHING TREATMENT. NO DISTRESS NOTED. WILL CONTINUE TO MONITOR.
--- NOTE | 2019-11-15 20:59 | NUR ---
BLOOD SUGAR CHECKED. PATIENT BLOOD SUGAR 120. NO S/SX OF HYPO-HYPERGLYCEMIA. WILL CONTINUE TO MONITOR.
--- NOTE | 2019-11-15 21:40 | NUR ---
CHECKED PATIENT. PATIENT SLEEPING RESPIRATION EVEN UNLABORED ON 1L O2 NC. NO DISTRESS NOTED. WILL CONTINUE TO MONITOR.
--- NOTE | 2019-11-15 23:00 | NUR ---
PATIENT ASKED FOR SANDWICH. SANDWICH IS GIVEN.
[2019-11-16] VITALS: BP 120/69
--- NOTE | 2019-11-16 00:05 | NUR ---
VITALS WERE TAKEN. PATIENT IN STABLE CONDITION. NO DISTRESS NOTED. WILL CONTINUE TO MONITOR.
--- NOTE | 2019-11-16 01:38 | NUR ---
CHECKED PATIENT. PATIENT SLEEPING RESPIRATION EVEN UNLABORED ON 1L NC O2. NO DISTRESS NOTED. WILL CONTINUE TO MONITOR.
[2019-11-16 04:00] VITALS: BP 134/74
--- NOTE | 2019-11-16 04:20 | NUR ---
VITALS WERE TAKEN PATIENT IN STABLE CONDITION. NO DISTRESS NOTED. WILL CONTINUE TO MONITOR.
[2019-11-16] MEDS: BLOOD GLUCOSE MONITORING 1 DEV DEV FS SCH ×2 (06:52→11:29)
[2019-11-16] MEDS: ALBUTEROL SULFATE/IPRATROPIU 3 ML SOL IH PRN (07:12)
--- NOTE | 2019-11-16 07:20 | NUR ---
RECEIVED BEDSIDE REPORT FROM AIRCRAFT CABIN CLEANER NURSE, PT IS AWAKE AND ALERT RECEIVING A BREATHING TX. NO S/S OF ACUTE DISTRESS. IV SITE NOTED L FA 22 G, INFUSING 1/2 NS 75 ML/HR. SKIN IS INTACT. PT IS AMBULATORY. CALL LIGHT IS WITHIN REACH. WILL CONTINUE TO MONITOR.
--- NOTE | 2019-11-16 07:28 | NUR ---
ENDORSED PATIENT TO DAY SHIFT NURSE. PATIENT IN STABLE CONDITION.
[2019-11-16 08:00] VITALS: BP 128/73
--- NOTE | 2019-11-16 08:22 | NUR ---
PT STATES THAT HE WILL NOT BE ABLE TO WALK TO THE BUS STOP, AND WILL NEED A TAXI VOUCHER INSTEAD TO GET TO THE [employer] [facility] WHEN HE DC'S TODAY. ALBERTO ARROYO IS AWARE.
[2019-11-16] MEDS: ENOXAPARIN 40 MG/0.4 ML SYR SUBQ SCH (08:33)
[2019-11-16] MEDS: NICOTINE TRANSD SYS 7 MG/24 HR PATCH TD SCH (08:38)
--- NOTE | 2019-11-16 08:50 | NUR ---
ADMINISTERED THE SCHEDULED AM LOVENOX. PT REFUSED THE NICOTINE PATCH.
[2019-11-16] MEDS: NACL 0.45% 1,000 ML IV SCH (10:17)
[2019-11-16] MEDS ORDERED: LEVO500T2 PO (10:22)
[2019-11-16] MEDS ORDERED: PRED20TA5 PO (10:24)
[2019-11-16] MEDS ORDERED: DEXT118S25 PO (10:35)
--- NOTE | 2019-11-16 10:59 | NUR ---
DC PLANNING 59 YRS OLD MALE PATIENT ADMITTED FROM ER WITH A DX OF PNEUMONIA. PT IS HOMELESS, HAS A HX OF STROKE, TB IN THE PAST, CHF, HTN AND COPD. C-XRAY SHOWED BASILAR ATELECTASIS VERSUS CONSOLIDATION STARTED ON LEVAQUIN IV, RT PROTOCOL. DC PLAN SS WILL CONTACT PATIENT TO HELP WITH HOMELESSNESS. CM TO FOLLOW
[2019-11-16] MEDS: ACETAMINOPHEN 325 MG TAB PO PRN (11:16)
[2019-11-16 12:00] VITALS: BP 143/71
--- NOTE | 2019-11-16 13:25 | NUR ---
PT HAS DC'D. PT WAS GIVEN DC INSTRUCTIONS ALONG WITH THE PRESCRIPTION. PT WAS GIVEN A PACKET OF HOMELESS/COMMUNITY RESOURCES. IV SITE AND WRIST BAND REMOVED. PT LEFT WITH ALL HIS BELONGINGS IN STABLE CONDITION.
--- NOTE | 2019-11-16 13:38 | NUR ---
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 Screen: Yes High Risk DC Screen Yes Name: BLAISE Sahu Relationship: FRIEND Pre-Admission Living Arrangements: Other Other: HOMELESS - [facility] Prior ADL Independent Current Home Health Name/Tel: N/A Current DME/02 Name/Tel: N/A Current Hospice Name/Tel: N/A Current Dialysis Name/Tel: N/A Healthcare Decision Maker: Patient Advance Directive No - REFUSED Information Taught: Advance Directive Community Resources Person Taught: Patient Teaching Tools: Verbal Factors Affecting Learning: None Participation Level: Active Refused Evaluation: Verbalizes Understanding Needs Additional Education: No Discipline: Case Mgt/Social Svcs Tentative Discharge Plan/Destination: No Needs Identified Will require assistance post discharge: No Referred to Blasting Machine Operator: No Tentative Discharge Plan Summary: Patient is a 59-year-old male admitted for pneumonia. Patient has PMHX of stroke, COPD, hypertension, CHF, and TB. Patient is homeless. SW verified demographics with patient. Patient stated that he has been homeless for several [place] [address] . Patient stated that he stays at this facility predominantly. Patient reports no history of mental health or substance abuse. SW provided homeless resources to patient. SW also provided education on advanced directive and patient refused. Patient stated that he has weather appropriate clothing. Patient's tentative discharge plan is to return to [facility] and coordinate living arrangements. SW will follow up as needed. Signature: ISAMAR Rodas Date: Nov 16, 2019 Time: 13:38
--- NOTE | 2019-11-16 14:54 | NUR ---
PCP Appointment: MARTINEZ contacted Inge from Dr. Michelle Howard's office [phone]. MARTINEZ arranged hospital follow up appointment at 1500 @ [address] [place] [address] Michelle Howard. Inge stated that she would contact patient to notify of appointment. No further needs identified.
== END 2019-11-16 13:25 | disposition home or self-care (01) | DRG 139 ==
LOC: MED 13:13 → UNDOADMIN 15:52 → MTU 15:52
PROVIDERS: ADMIT Internal Medicine; ATTEND Internal Medicine
DX: J18.9 Pneumonia, unspecified organism (principal); E43 Unspecified severe protein-calorie malnutrition; I11.0 Hypertensive heart disease with heart failure; I50.9 Heart failure, unspecified; J44.0 Chronic obstructive pulmonary disease with (acute) lower respiratory infection; J44.1 Chronic obstructive pulmonary disease with (acute) exacerbation; G89.4 Chronic pain syndrome; F17.210 Nicotine dependence, cigarettes, uncomplicated; Z59.0 Homelessness; Z86.11 Personal history of tuberculosis; Z86.73 Personal history of transient ischemic attack (TIA), and cerebral infarction without residual deficits; Z88.5 Allergy status to narcotic agent; Z88.0 Allergy status to penicillin; Z79.899 Other long term (current) drug therapy
CPT/HCPCS: 36415; 71045; 80048; 80053; 81001; 82948; 83605; 83880; 84484; 85025; 87040; 87070; 87081; 87086; 87205; 87804; 89220; 93005; 94640; 96361; 96365; 99285; J1650; J1956; J7030; J7620; Q0092

== ENCOUNTER 2023-02-15 22:11 | Emergency (ER) | payer OTHER ==
[~2023-02-15] VITALS: Ht 170.2 cm; Wt 108.9 kg
[~2023-02-15 22:11] MED LIST changes: -ACET-9536 PO; -ATRMDI IH; +BACL10TA4 PO; -BACL20TA4 PO; +DEXT118S25 PO; -FURO-572 PO; +HYDR-5092 PO; +LEVO500T2 PO; +PRED20TA5 PO; -RANI-287 PO; -SIMV20TA1 PO; +SODI45SP10 NS
--- NOTE | 2023-02-15 22:15 | NUR ---
pt to bed 2
[2023-02-15 22:16] VITALS: BP 148/94
--- NOTE | 2023-02-15 22:16 | NUR ---
pt biba from home for sob x2 days. pt recieved breathing tx. per EMS on seen pt was 96% RA. pt does have hx of smoking. pt does not use nasal cannula at home. pmh: COPD allergies: pencillins, codeine
[2023-02-15] MEDS ORDERED: predniSONE 20 MG TAB PO ONE (23:35)
[2023-02-16 00:02] LABS: BASOPHILS # (AUTO) 0.1 K/uL (0.00-0.22); BASOPHILS % (AUTO) 0.8 % (0.0-2.0); EOSINOPHILS # (AUTO) 0.2 K/uL (0-0.4); EOSINOPHILS % (AUTO) 2.3 % (0.0-4.0); HEMATOCRIT 43.4 % (36-52); HEMOGLOBIN 14.8 g/dL (12.0-18.0); LYMPHOCYTES # (AUTO) 1.6 K/uL (2.0-11.5); LYMPHOCYTES % (AUTO) 20.6 % (20.5-51.1); MEAN CORPUSCULAR HEMOGLOBIN 30 pg (27-31); MEAN CORPUSCULAR HGB CONC 34 g/dL (33-37); MEAN CORPUSCULAR VOLUME 88.7 fL (80-94); MONOCYTES # (AUTO) 0.5 K/uL (0.8-1.0); MONOCYTES % (AUTO) 6.5 % (1.7-9.3); NEUTROPHILS # (AUTO) 5.4 K/uL (1.8-7.7); NEUTROPHILS % (AUTO) 69.8 % (42.2-75.2); PLATELET COUNT (AUTO) 192 K/uL (140-450); RED BLOOD CELL COUNT(AUTO) 4.89 MIL/uL (4.20-6.10); RED CELL DISTRIBUTION WIDTH 14.5 % (11.6-13.7); WHITE BLOOD COUNT (AUTO) 7.7 K/uL (4.8-10.8)
[2023-02-16 00:19] LABS: ALBUMIN 3.9 g/dL (3.4-5.0); CARBON DIOXIDE 28.2 mmol/L (21-32); CREATININE 1.2 mg/dL (0.6-1.3); POTASSIUM 4.2 mmol/L (3.5-5.1); TOTAL BILIRUBIN 0.5 mg/dL (0.0-1.0)
[2023-02-16] MEDS ORDERED: ASPIRIN 325 MG TAB PO ONE (01:10)
[2023-02-16] MEDS ORDERED: hePARIN / DEXT 5% PREMIX 250 ML IV ONE (02:50)
[2023-02-16] MEDS ORDERED: HEPARIN PER PHARMACY MC PRN (02:50)
--- NOTE | 2023-02-16 03:03 | NUR ---
spolke to lulú at [facility] to give the report. He would like to have the ambulance call before arrival.
[2023-02-16] MEDS ORDERED: hePARIN / DEXT 5% PREMIX 250 ML IV SCH (04:25)
[2023-02-16 06:05] VITALS: BP 124/66
--- NOTE | 2023-02-16 06:09 | NUR ---
Patient to be transferred to [facility]. Is being transferred due to NSTEMI. Receiving facility has accepting physician and available space. ER physician has signed transfer form. Patient or responsible libertarian has agreed to transfer and signed form. Patient belongings inventoried and will be sent with patient. Copy of nursing notes, lab reports, EKG, Physicians Orders and X-rays to be sent with patient. Report called to Matthew CARDOSO at receiving facility. [facility] ambulance service has been called for transfer. ETA is 10 minutes.
== END 2023-02-16 06:09 | disposition short-term general hospital (02) ==
LOC: MED 22:11
DX: I21.4 Non-ST elevation (NSTEMI) myocardial infarction (principal); J44.1 Chronic obstructive pulmonary disease with (acute) exacerbation; I50.9 Heart failure, unspecified; E11.9 Type 2 diabetes mellitus without complications; I10 Essential (primary) hypertension; F17.210 Nicotine dependence, cigarettes, uncomplicated; Z86.73 Personal history of transient ischemic attack (TIA), and cerebral infarction without residual deficits
CPT/HCPCS: 36415; 71045; 80053; 83880; 84484; 85025; 85730; 93005; 96374; 99291; J1644; J7512; Q0092

== ENCOUNTER 2023-04-23 16:13 | Emergency (ER) | payer OTHER ==
[~2023-04-23] VITALS: Ht 172.7 cm; Wt 105.7 kg
[2023-04-23 16:55] VITALS: BP 165/95
--- NOTE | 2023-04-23 17:04 | NUR ---
pt ambulatory to [facility]
--- NOTE | 2023-04-23 17:55 | NUR ---
WENT UP TO ER ADMIT COUNTER AND SAID HE WAS LEAVING
--- NOTE | 2023-04-23 18:01 | NUR ---
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
--- NOTE | 2023-04-23 18:22 | NUR ---
CALLED PT. IN LOBBY AND NO ANSWER. PT. LEFT WITHOUT BEING SEEN
== END 2023-04-23 17:55 | disposition left against medical advice (07) ==
LOC: MED 16:13
DX: R51.9 Headache, unspecified (principal); R06.02 Shortness of breath; Z53.21 Procedure and treatment not carried out due to patient leaving prior to being seen by health care provider
CPT/HCPCS: 99281

== ENCOUNTER 2023-09-01 20:14 | Emergency (ER) | payer OTHER ==
[~2023-09-01] VITALS: Ht 172.7 cm; Wt 108.9 kg
[~2023-09-01 20:14] MED LIST changes: +SODI44SP27 NS; -SODI45SP10 NS
[2023-09-01 20:20] VITALS: BP 176/77; PULSE 65; RESP 17; TEMP 97.1; O2SAT 9
[2023-09-01] MEDS ORDERED: ALBUTEROL SULFATE/IPRATROPIU 3 ML SOL IH ONE (21:15)
[2023-09-01 21:27] VITALS: PULSE 77; RESP 15; O2SAT 98
[2023-09-01] MEDS ORDERED: predniSONE 20 MG TAB PO ONE (21:30)
[2023-09-01 21:39] LABS: BASOPHILS # (AUTO) 0.1 K/uL (0.00-0.22); BASOPHILS % (AUTO) 0.7 % (0.0-2.0); EOSINOPHILS # (AUTO) 0.3 K/uL (0-0.4); HEMATOCRIT 44.3 % (36-52); HEMOGLOBIN 15.2 g/dL (12.0-18.0); LYMPHOCYTES # (AUTO) 1.6 K/uL (2.0-11.5); LYMPHOCYTES % (AUTO) 18.3 % (20.5-51.1); MEAN CORPUSCULAR HEMOGLOBIN 31 pg (27-31); MEAN CORPUSCULAR HGB CONC 34 g/dL (33-37); MEAN CORPUSCULAR VOLUME 89.2 fL (80-94); MONOCYTES # (AUTO) 0.6 K/uL (0.8-1.0); MONOCYTES % (AUTO) 6.9 % (1.7-9.3); NEUTROPHILS # (AUTO) 6.4 K/uL (1.8-7.7); NEUTROPHILS % (AUTO) 71.1 % (42.2-75.2); PLATELET COUNT (AUTO) 204 K/uL (140-450); RED BLOOD CELL COUNT(AUTO) 4.96 MIL/uL (4.20-6.10); RED CELL DISTRIBUTION WIDTH 14.1 % (11.6-13.7); WHITE BLOOD COUNT (AUTO) 8.9 K/uL (4.8-10.8)
[2023-09-01 21:55] LABS: APPEARANCE,URINE CLEAR (CLEAR); BILIRUBIN,URINE NEGATIVE (NEGATIVE); BLOOD, URINE NEGATIVE (NEGATIVE); LEUKOCYTE ESTERASE ,URINE NEGATIVE (NEGATIVE); NITRITE, URINE NEGATIVE (NEGATIVE); PH,URINE 5.5 (5.0-9.0); PROTEIN,URINE NEGATIVE (NEGATIVE); UGLUCOSE NEGATIVE (NEGATIVE); UROBILINOGEN,URINE 0.2 EU/dL (0.2 - 1)
[2023-09-01 21:57] LABS: COLOR,URINE STRAW (YELLOW)
[2023-09-01 22:00] LABS: ALBUMIN 3.7 g/dL (3.4-5.0); ANION GAP 11.4 (8-16); CALCIUM 9.4 mg/dL (8.5-10.1); CARBON DIOXIDE 25.6 mmol/L (21-32); CREATININE 0.9 mg/dL (0.6-1.3); TOTAL BILIRUBIN 0.4 mg/dL (0.0-1.0); TOTAL PROTEIN, SERUM 7.1 g/dL (6.4-8.2)
[2023-09-01 22:07] LABS: FLU A ANTIGEN negative (NEGATIVE); FLU B ANTIGEN NEGATIVE (NEGATIVE)
[2023-09-01 22:15] LABS: AMPHETAMINE, URINE NEGATIVE ng/ml (NEG <=1000); BARBITURATE, URINE NEGATIVE ng/ml (NEG <=200); BENZODIAZEPINE, URINE NEGATIVE ng/mL (NEG <=200); CANNABINOID, URINE NEGATIVE ng/mL (NEG <=50); COCAINE, URINE NEGATIVE ng/mL (NEG <=300); OPIATE, URINE NEGATIVE ng/mL (NEG <=2000); PHENCYCLIDINE SCREEN,URINE NEGATIVE ng/mL (NEG <=25)
[2023-09-02 02:39] VITALS: BP 132/78; PULSE 65; RESP 18; TEMP 97.1; O2SAT 96
[2023-09-02] MEDS ORDERED: PRED20TA5 PO (02:56)
[2023-09-02] MEDS ORDERED: ALBU0.0912 INH (02:56)
== END 2023-09-02 03:14 | disposition home or self-care (01) ==
LOC: MED 20:14
DX: J44.1 Chronic obstructive pulmonary disease with (acute) exacerbation (principal); Z20.822 Contact with and (suspected) exposure to COVID-19; I11.0 Hypertensive heart disease with heart failure; I50.9 Heart failure, unspecified; E11.9 Type 2 diabetes mellitus without complications; F17.200 Nicotine dependence, unspecified, uncomplicated; Z86.73 Personal history of transient ischemic attack (TIA), and cerebral infarction without residual deficits; Z79.899 Other long term (current) drug therapy; Z79.2 Long term (current) use of antibiotics; E78.5 Hyperlipidemia, unspecified; Z88.0 Allergy status to penicillin; Z88.5 Allergy status to narcotic agent
CPT/HCPCS: 36415; 71045; 80053; 80305; 81003; 83880; 84484; 85025; 87040; 87426; 87804; 93005; 94640; 99285; J7512

== ENCOUNTER 2024-01-27 07:48 | Emergency (ER) | payer OTHER ==
[~2024-01-27] VITALS: Ht 172.7 cm; Wt 66.2 kg
[~2024-01-27 07:48] MED LIST changes: +ALBU0.0912 INH
[2024-01-27 07:52] VITALS: BP 149/94; PULSE 58; RESP 22; TEMP 97.9; O2SAT 96
[2024-01-27 08:28] LABS: BASOPHILS % (AUTO) 0.5 % (0.0-2.0); EOSINOPHILS # (AUTO) 0.2 K/uL (0-0.4); EOSINOPHILS % (AUTO) 2.4 % (0.0-4.0); HEMATOCRIT 43.7 % (36-52); LYMPHOCYTES # (AUTO) 1.5 K/uL (2.0-11.5); LYMPHOCYTES % (AUTO) 16.6 % (20.5-51.1); MEAN CORPUSCULAR HEMOGLOBIN 31 pg (27-31); MEAN CORPUSCULAR HGB CONC 34 g/dL (33-37); MEAN CORPUSCULAR VOLUME 89.1 fL (80-94); MONOCYTES # (AUTO) 0.5 K/uL (0.8-1.0); MONOCYTES % (AUTO) 5.9 % (1.7-9.3); NEUTROPHILS # (AUTO) 6.8 K/uL (1.8-7.7); NEUTROPHILS % (AUTO) 74.6 % (42.2-75.2); PLATELET COUNT (AUTO) 217 K/uL (140-450); RED CELL DISTRIBUTION WIDTH 14.1 % (11.6-13.7); WHITE BLOOD COUNT (AUTO) 9.1 K/uL (4.8-10.8)
[2024-01-27 08:36] LABS: ANION GAP 11.4 (8-16); CARBON DIOXIDE 28.3 mmol/L (21-32); CREATININE 1.1 mg/dL (0.6-1.3); POTASSIUM 4.7 mmol/L (3.5-5.1)
[2024-01-27 10:02] VITALS: BP 140/63; PULSE 62; RESP 18; TEMP 98.3; O2SAT 96
== END 2024-01-27 10:03 | disposition home or self-care (01) ==
LOC: MED 07:48
DX: I11.0 Hypertensive heart disease with heart failure (principal); I50.9 Heart failure, unspecified; F17.200 Nicotine dependence, unspecified, uncomplicated; Z71.6 Tobacco abuse counseling; J44.9 Chronic obstructive pulmonary disease, unspecified; Z86.73 Personal history of transient ischemic attack (TIA), and cerebral infarction without residual deficits; Z79.899 Other long term (current) drug therapy; Z88.0 Allergy status to penicillin; Z88.5 Allergy status to narcotic agent
CPT/HCPCS: 36415; 71045; 80048; 83880; 84484; 85025; 93005; 99285

== ENCOUNTER 2024-05-23 17:20 | Inpatient (IN) | payer OTHER ==
[~2024-05-23] VITALS: Ht 177.8 cm; Wt 109.3 kg
[2024-05-23 17:31] VITALS: BP 122/81; PULSE 90; RESP 18; TEMP 97; O2SAT 91
[2024-05-23 19:58] LABS: BASOPHILS % (AUTO) 0.4 % (0.0-2.0); EOSINOPHILS # (AUTO) 0.2 K/uL (0-0.4); EOSINOPHILS % (AUTO) 2.2 % (0.0-4.0); HEMATOCRIT 42.2 % (36-52); HEMOGLOBIN 14.2 g/dL (12.0-18.0); LYMPHOCYTES # (AUTO) 2.3 K/uL (2.0-11.5); LYMPHOCYTES % (AUTO) 23.2 % (20.5-51.1); MEAN CORPUSCULAR HEMOGLOBIN 29 pg (27-31); MEAN CORPUSCULAR HGB CONC 34 g/dL (33-37); MEAN CORPUSCULAR VOLUME 85.9 fL (80-94); MONOCYTES # (AUTO) 0.8 K/uL (0.8-1.0); MONOCYTES % (AUTO) 8.5 % (1.7-9.3); NEUTROPHILS # (AUTO) 6.4 K/uL (1.8-7.7); NEUTROPHILS % (AUTO) 65.7 % (42.2-75.2); PLATELET COUNT (AUTO) 243 K/uL (140-450); RED BLOOD CELL COUNT(AUTO) 4.91 MIL/uL (4.20-6.10); RED CELL DISTRIBUTION WIDTH 14.7 % (11.6-13.7); WHITE BLOOD COUNT (AUTO) 9.8 K/uL (4.8-10.8)
[2024-05-23 20:08] LABS: ANION GAP 14.5 (8-16); CALCIUM 8.6 mg/dL (8.5-10.1); CARBON DIOXIDE 25.8 mmol/L (21-32); CREATININE 0.9 mg/dL (0.6-1.3); POTASSIUM 3.3 mmol/L (3.5-5.1)
[2024-05-23 20:14] LABS: APPEARANCE,URINE CLEAR (CLEAR); BILIRUBIN,URINE NEGATIVE (NEGATIVE); BLOOD, URINE NEGATIVE (NEGATIVE); COLOR,URINE YELLOW (YELLOW); LEUKOCYTE ESTERASE ,URINE NEGATIVE (NEGATIVE); NITRITE, URINE NEGATIVE (NEGATIVE); PH,URINE 6.5 (5.0-9.0); PROTEIN,URINE NEGATIVE (NEGATIVE); UGLUCOSE NEGATIVE (NEGATIVE); UROBILINOGEN,URINE 0.2 EU/dL (0.2 - 1)
[2024-05-23 20:15] LABS: ALBUMIN 3.2 g/dL (3.4-5.0); BILIRUBIN,DIRECT 0.1 mg/dL (0.0-0.3); TOTAL BILIRUBIN 0.2 mg/dL (0.0-1.0); TOTAL PROTEIN, SERUM 6.9 g/dL (6.4-8.2)
[2024-05-23] MEDS ORDERED: AZITHROMYCIN 500 MG INJ VIAL IV ONE (20:27)
[2024-05-23] MEDS ORDERED: cefTRIAXone 1,000 MG VIAL ONE ×2 (20:28→22:32)
[2024-05-23] MEDS: ALBUTEROL 0.083% 2.5 MG/3 ML NEBU INH ONE (20:37)
[2024-05-23 20:47] VITALS: PULSE 85; PULSE 89; RESP 18; RESP 22; O2SAT 99
[2024-05-23] MEDS: AZITHROMYCIN 1,000 MG in DEXTROSE 5% 500 ML IV ONE (20:52)
[2024-05-23] MEDS: ASPIRIN 325 MG TAB PO ONE (20:55)
[2024-05-23] MEDS: MAG SULF 2000 MG/WATER PREMIX 50 ML IV ONE (22:00)
[2024-05-23] MEDS ORDERED: WATER STERILE 10 ML MC ONE (22:42)
[2024-05-23] MEDS ORDERED: methylPREDNISolone SS 125 MG/2 ML VIAL ONE (22:42)
[2024-05-23] MEDS: methylPREDNISolone SS 125 MG in WATER STERILE 2 ML IV SCH (22:47)
[2024-05-23] MEDS ORDERED: ONDANSETRON 4 MG/2 ML VIAL IVP PRN (23:20)
[2024-05-23] MEDS ORDERED: ALBUTEROL 0.083% 2.5 MG/3 ML NEBU INH PRN (23:20)
[2024-05-23] MEDS ORDERED: ACETAMINOPHEN 325 MG TAB PO PRN (23:20)
[2024-05-24] VITALS (18 sets, daily range): BP systolic 115–126; BP diastolic 59–75; PULSE 64–93; RESP 18–20; TEMP 96.9–98.5; O2SAT 89–99
[2024-05-24] MEDS ORDERED: METO25TE2 PO (00:18)
[2024-05-24] MEDS ORDERED: LIP80 PO (00:18)
[2024-05-24] MEDS ORDERED: NAPR-1704 PO (00:18)
[2024-05-24] MEDS ORDERED: ACET-10509 PO (00:18)
[2024-05-24] MEDS ORDERED: ASPI-1822 PO (00:18)
[2024-05-24] MEDS ORDERED: CLON0.1T16 PO (00:18)
[2024-05-24] MEDS ORDERED: OMEP20EC11 PO (00:18)
[2024-05-24] MEDS ORDERED: FURO-570 PO (00:18)
[2024-05-24] MEDS ORDERED: ALBU0.0912 INH (00:18)
[2024-05-24] MEDS ORDERED: TICA90TA PO (00:18)
[2024-05-24] MEDS ORDERED: CETI1SOL12 PO (00:18)
[2024-05-24] MEDS: ALBUTEROL 0.083% 2.5 MG/3 ML NEBU INH SCH (00:52)
[2024-05-24] MEDS: IPRATROPIUM 0.02% 0.5 MG/2.5 ML NEBU INH SCH (00:52)
[2024-05-24] MEDS: POTASSIUM CHLORIDE 10 MEQ TABER PO ONE (01:14)
[2024-05-24] MEDS: methylPREDNISolone SS 40 MG in WATER STERILE 1 ML IV SCH (06:03)
[2024-05-24] MEDS: WATER STERILE 10 ML MC ONE ×2 (06:20→14:05)
[2024-05-24] MEDS: methylPREDNISolone SS 40 MG/ML VIAL ONE ×2 (06:21→14:05)
[2024-05-24 06:45] LABS: BASOPHILS % (AUTO) 0.2 % (0.0-2.0); HEMATOCRIT 43.7 % (36-52); HEMOGLOBIN 14.8 g/dL (12.0-18.0); LYMPHOCYTES # (AUTO) 0.7 K/uL (2.0-11.5); MEAN CORPUSCULAR HEMOGLOBIN 29 pg (27-31); MEAN CORPUSCULAR HGB CONC 34 g/dL (33-37); MEAN CORPUSCULAR VOLUME 86.4 fL (80-94); MONOCYTES # (AUTO) 0.1 K/uL (0.8-1.0); MONOCYTES % (AUTO) 0.7 % (1.7-9.3); NEUTROPHILS # (AUTO) 7.4 K/uL (1.8-7.7); NEUTROPHILS % (AUTO) 91.1 % (42.2-75.2); PLATELET COUNT (AUTO) 234 K/uL (140-450); RED BLOOD CELL COUNT(AUTO) 5.06 MIL/uL (4.20-6.10); RED CELL DISTRIBUTION WIDTH 14.4 % (11.6-13.7); WHITE BLOOD COUNT (AUTO) 8.1 K/uL (4.8-10.8)
[2024-05-24 07:10] LABS: ALBUMIN 3.2 g/dL (3.4-5.0); ANION GAP 15.5 (8-16); CALCIUM 8.6 mg/dL (8.5-10.1); CARBON DIOXIDE 23.9 mmol/L (21-32); CREATININE 1.1 mg/dL (0.6-1.3); POTASSIUM 3.4 mmol/L (3.5-5.1); TOTAL BILIRUBIN 0.3 mg/dL (0.0-1.0); TOTAL PROTEIN, SERUM 7.1 g/dL (6.4-8.2)
[2024-05-24] MEDS: MEDS-TO-BEDS MC SCH (09:00)
[2024-05-24] MEDS: BACLOFEN 10 MG TAB PO SCH (09:34)
[2024-05-24] MEDS: ENOXAPARIN 40 MG/0.4 ML SYR SUBQ SCH (09:35)
[2024-05-24] MEDS: POTASSIUM CHLORIDE 10 MEQ TABER PO SCH (14:11)
[2024-05-24] MEDS: methylPREDNISolone SS 40 MG/ML VIAL IVP SCH (21:42)
[2024-05-24] MEDS: AZITHROMYCIN 500 MG in DEXTROSE 5% 250 ML IV SCH (21:42)
[2024-05-25] VITALS (9 sets, daily range): BP systolic 103–135; BP diastolic 56–80; PULSE 63–92; RESP 18–24; TEMP 96.9–98.4; O2SAT 90–100
[2024-05-25] MEDS: guaiFENesin 20 MG/ML UDC PO PRN (06:43)
[2024-05-25] MEDS: predniSONE 20 MG TAB PO SCH (08:28)
[2024-05-25] MEDS: NICOTINE TRANSD SYS 21 MG/24 HR PATCH TD SCH (08:29)
[2024-05-25] MEDS ORDERED: DOXY-690 PO (18:32)
[2024-05-25] MEDS ORDERED: PRED20TA5 PO (18:32)
== END 2024-05-25 19:29 | disposition home or self-care (01) | DRG 139 ==
LOC: MED 17:20 → MTU 23:25
PROVIDERS: ADMIT Hospitalist; ATTEND Hospitalist
DX: J18.9 Pneumonia, unspecified organism (principal); J96.01 Acute respiratory failure with hypoxia; J44.1 Chronic obstructive pulmonary disease with (acute) exacerbation; J44.0 Chronic obstructive pulmonary disease with (acute) lower respiratory infection; E66.9 Obesity, unspecified; J45.909 Unspecified asthma, uncomplicated; Z88.5 Allergy status to narcotic agent; Z88.0 Allergy status to penicillin; Z68.34 Body mass index [BMI] 34.0-34.9, adult
CPT/HCPCS: 36415; 71045; 80048; 80053; 80076; 81003; 83880; 84484; 85025; 87081; 93005; 94640; 96365; 96366; 96368; 99285; J0456; J0696; J1650; J2919; J2920; J3475; J7060; J7512; J7613; J7644